=== PATIENT | male | born 1990 | race Caucasian/White ===

== ENCOUNTER → 2017-04-28 | Outpatient (CLI) | payer OTHER ==
[~2017-04-28] MED LIST: ATARAX PO; INDOMETHACIN25 MG PO
--- NOTE | ~2017-04-28 | ST ---
Unit #: [id number] #: [id number] Patient: BERNY DANGELO [id number] [facility]. [address] [address] [id number] MR#: [id number] NAME: BERNY DANGELO : 1990 SEX: M STUDY DATE/TIME: 04/28/2017 UNIT: CEKG ROOM: STUDY DESCRIPTION: Attending Physician: Ronald Shah M.D. Referring Physician: Ronald Shah M.D. Primary Care Physician: Ronald Shah M.D. CARDIOLOGY REPORT EXAM Regular treadmill stress test. FINDINGS Baseline EKG shows sinus rhythm. ST-T wave changes suggestive of early repolarization versus pericarditis. PROCEDURE Patient was made to exercise on a standard Marcos protocol. Total exercise time is nine minutes, completing stage 3 of a standard Marcos protocol. No complaints of chest pain or extreme shortness of breath. Maximal heart rate obtained is 179, which is 93% of maximal predicted heart rate. Maximal blood pressure obtained is 170/[address]-T wave changes suggestive of ischemia. No arrhythmias noted. CONCLUSION 1. Baseline EKG is suggestive of either early repolarization versus pericarditis. 2. Fair exercise tolerance for age. 3. There is no clinical, hemodynamic, or EKG evidence of ischemia at good workload (93% of maximal predicted heart rate, 10.4 METs). 4. Normal heart rate and blood pressure response. 5. Normal regular treadmill stress test. Dictated by... Adrianna Strong TD: 04/28/2017 16:17 JOB #: [id number] CC: Ronald Shah M.D. Unit #: [id number] #: [id number] Patient: BERNY DANGELO CARDIOLOGY REPORT Page 1 of 1 X Petra Jaramillo MD <ELECTRONICALLY SIGNED> 06/06/17 1429 CARDIOLOGY REPORT
== END | disposition home or self-care (01) ==
LOC: CEKG 08:54
DX: R07.89 Other chest pain (principal); E78.5 Hyperlipidemia, unspecified
CPT/HCPCS: 93017

== ENCOUNTER 2017-05-13 19:37 | Emergency (ER) | payer OTHER ==
--- NOTE | ~2017-05-13 | CR72 ---
[facility] A Service of [facility] RADIOLOGY TEXT RESULTS PATIENT: BERNY DANGELO LOCATION: [facility] : 86 UNIT #: [id number] AGE: [address]: Jamaal Shultz MD SEX: M ORDER DR: [id number] [place], [place] [address] [id number] MR#: [id number] Acc #: [id number] NAME: BERNY DANGELO : 1990 SEX: M STUDY DATE/TIME: 05/13/2017 20:42 UNIT: [facility] ROOM: STUDY DESCRIPTION: CR Chest Single View Portable Attending Physician: Jamaal Shultz M.D. Ordering Physician: Ed Joshua Mendoza M.D. Primary Care Physician: Ronald Shah M.D. MEDICAL IMAGING REPORT This report is preliminary unless electronic signature is present EXAMINATION AP portable chest DATE 05/13/2017 HISTORY 26-year-old male with mid chest pain and shortness of breath since yesterday. COMPARISON None. FINDINGS A single AP portable view of the chest shows both lungs to be clear. The heart is normal in size. The mediastinal contour is normal. No significant bone abnormalities are seen. IMPRESSION Normal portable chest. Dictated by... Alexandra Vences M.D. THIS IS AN ELECTRONICALLY VERIFIED REPORT Alexandra Vences M.D. at 05/14/2017 10:[address] [facility] TD: 05/13/2017 22:56 JOB #: [id number] MEDICAL IMAGING REPORT [facility] A Service of [facility] RADIOLOGY TEXT RESULTS PATIENT: BERNY DANGELO LOCATION: [facility] : 86 UNIT #: [id number] AGE: [address]: Jamaal Shultz MD SEX: M ORDER DR: Page 1 of 1 COPY
--- NOTE | ~2017-05-13 | EKG ---
PATIENT: BERNY DANGELO UNIT #: [id number] Ventricular Rate: 75 BPM Atrial Rate: 75 BPM P-R Interval: 154 ms QRS Duration: 92 ms Q-T Interval: 370 ms QTC Calculation(Bezet): 413 ms P [place]: 32 degrees Calculated R [place]: 37 degrees Calculated T [place]: 32 degrees Diagnosis Line: Normal sinus rhythm with sinus arrhythmia Diagnosis Line: Normal ECG Diagnosis Line: No previous ECGs available Diagnosis Line: Confirmed by LACY LANDA MD ([id number]) on 05/14/2017 Diagnosis Line: 8:27:30 PM INTERPRETING MD: SYEDA BADILLO
[2017-05-13 21:01] LABS: BASOPHIL# 0.1 X10e3 (0-0.3); BASOPHIL% 1.3 % (0-2.5); EOSINOPHIL# 0.3 X10e3 (0-0.7); EOSINOPHIL% 3.2 % (0.0-7.0); HEMATOCRIT 41.3 % (38.0-50.0); HEMOGLOBIN 14.1 gm/dL (13.0-16.0); LYMPHOCYTE# 1.7 X10e3 (1.0-3.5); LYMPHOCYTE% 18.3 % (17.0-45.0); MEAN CELL VOLUME 83.8 FL (83-96); MEAN CORPUSCULAR HEMOGLOBIN 28.7 PG (28-34); MEAN CORPUSCULAR HGB CONC 34.2 g/dL (30-36); MEAN PLATELET VOLUME 9.4 FL (6.5-11.5); MONOCYTE# 0.8 X10e3 (0-1.0); NEUTROPHIL# 6.4 X10e3 (1.5-7.1); NEUTROPHIL% 68.2 % (40-75); PLATELET COUNT 217 X10e3 (140-420); RED BLOOD COUNT 4.92 X10e (3.90-5.60); RED CELL DISTRIBUTION WIDTH 13.2 % (11.0-15.5); WHITE BLOOD COUNT 9.4 X10e3 (4.0-10.5)
[2017-05-13 21:04] LABS: DIFF IND NO
[2017-05-13 21:11] LABS: INR 1.1; PARTIAL THROMBOPLASTIN TIME 26.2 SECONDS (23.5-31.3); PROTHROMBIN TIME (PATIENT) 11.4 SECONDS (10.0-11.7)
[2017-05-13 21:20] LABS: POC - CKMB <1.0 ng/mL (0.0-7.9); POC - TROPONIN <0.05 ng/mL (<=0.05)
[2017-05-13 21:24] LABS: ALBUMIN SERUM 4.4 g/dL (3.5-5.0); BILIRUBIN, DIRECT 0.1 mg/dL (0.0-0.2); BILIRUBIN,INDIRECT 0.5 mg/dL (0.0-0.9); BILIRUBIN,TOTAL 0.6 mg/dL (0.2-2.0); CALCIUM SERUM 9.3 mg/dL (8.4-10.2); POTASSIUM 3.9 mmol/L (3.5-5.1); PROTEIN TOTAL SERUM 7.3 g/dL (6.0-8.3)
[2017-05-13 22:56] LABS: POC - CKMB <1.0 ng/mL (0.0-7.9); POC - TROPONIN <0.05 ng/mL (<=0.05)
[2017-05-22] MEDS ORDERED: INDOMETHACIN25 MG PO (04:44)
[2017-05-22] MEDS ORDERED: ATARAX PO (04:44)
== END 2017-05-13 23:24 | disposition home or self-care (01) ==
LOC: CED 19:37
PROVIDERS: Emergency Medicine
DX: R07.9 Chest pain, unspecified (principal)
CPT/HCPCS: 36415; 71010; 80048; 80076; 82553; 84484; 85025; 85610; 85730; 93005; 99285